=== PATIENT | female | born 1990 | race Caucasian/White ===

== ENCOUNTER 2017-04-02 00:35 | Inpatient (IN) | payer MEDICAID ==
[~2017-04-02] VITALS: Ht 144.8 cm; Wt 58.2 kg
--- NOTE | 2017-04-02 01:19 | TRIAGE ---
OB Triage Datetime Report Generated by CPN: 04/02/2017 01:19 Datetime: 04/02/2017 01:00 Time of Arrival: 04/02/2017 00:35 Chief Complaint: CXS SINCE 1999 Movement: Present Contractions: Regular Time Contractions Began: 04/01/2017 20:00 Rupture of Membranes: Denies Vaginal Bleeding: None Patient Complaints: None Additional Patient Complaints: DR NGO AT NURSE STATION Time Provider Notified: 04/02/2017 00:40 Provider Notified: HUBER Datetime: 04/02/2017 00:59 Assessment Type: Triage Maternal Assessment Level of Consciousness: Fully Conscious Headache: Denies Blurred Vision: No Respiratory Effort: Unlabored; Regular Rhythm; Equal Expansion Nausea/Vomiting: Denies RUQ Epigastric Pain: Denies Lower Extremities Edema: None Upper Extremities Edema: None Facial Edema: None Fall Risk Assessment History of Falling: (0) No Secondary Diagnosis: (0) No Ambulatory Aid: (0) Bedrest/Nurse Assist IV Therapy: (0) No Gait: (0) Normal/Bedrest/Immobile Mental Status: (0) Oriented to Own Ability Fall Score: 0 Fall Risk Score Definition: No Risk: No action required Datetime: 04/02/2017 00:52 Vaginal Exam Dilatation (cms): 10.0 Effacement (%): 100 Station: 1 Exam By: DR NGO Vaginal Bleeding: None Cervix, Consistency: Soft Cervix, Position: Anterior
[2017-04-02] MEDS ORDERED: OXYTOCIN 30 UNITS/LR 500 ML IV ONE ×2 (01:31→01:46)
[2017-04-02] MEDS ORDERED: LACTATED RINGER'S 1,000 ML IV SCH (01:33)
[2017-04-02 01:37] VITALS: Ht 144.8 cm; Wt 58.2 kg
[2017-04-02] MEDS ORDERED: CEFAZOLIN 2 GM/50 ML (PMX) 0 ML IVPB ONE (01:46)
[2017-04-02] MEDS ORDERED: BUTORPHANOL 2 MG INJ IV PRN (02:00)
[2017-04-02] MEDS ORDERED: LIDOCAINE 1% (MPF) 30 ML INJ INJ PRN (02:00)
[2017-04-02] MEDS ORDERED: CARBOPROST 250 MCG INJ IM PRN ×2 (02:00→06:30)
[2017-04-02] MEDS ORDERED: OXYTOCIN 30 UNITS/LR 500 ML IV SCH (02:00)
[2017-04-02] MEDS ORDERED: MISOPROSTOL 200 MCG TAB PR PRN ×2 (02:00→06:30)
[2017-04-02] MEDS ORDERED: METHYLERGONOVINE 0.2 MG INJ IM PRN ×2 (02:00→06:30)
[2017-04-02] MEDS ORDERED: AMPICILLIN 2 GM/NS (PMX) 100 ML IV ONE (02:00)
[2017-04-02] MEDS ORDERED: OXYTOCIN 30 UNITS/LR 500 ML IV PRN ×2 (02:00→06:30)
[2017-04-02] MEDS: OXYTOCIN 30 UNITS/LR 500 ML IV SCH ×2 (02:13→03:40)
[2017-04-02 03:20] LABS: BASOPHILS % 0.2 % (0.0-2.0); EOSINOPHILS % 0.1 % (0.0-7.0); HEMATOCRIT 35.7 % (37.0-47.0); HEMOGLOBIN 12.1 g/dl (12.0-16.0); LYMPHOCYTES % 6.8 % (15.0-51.0); MEAN CORPUSCULAR HEMOGLOBIN 28.2 pg (29.0-33.0); MEAN CORPUSCULAR HGB CONC 33.9 g/dl (32.0-37.0); MEAN CORPUSCULAR VOLUME 83.2 fl (82.0-101.0); MONOCYTE # 0.5 10^3/ul (0.3-0.9); MONOCYTES % 3.1 % (0.0-11.0); NEUTROPHIL # 13.4 10^3/ul (1.6-7.5); NEUTROPHILS % 89.4 % (39.0-77.0); PLATELET COUNT 212 10^3/UL (140-415); RED BLOOD COUNT 4.29 10^6/ul (4.20-5.40); RED CELL DISTRIBUTION WIDTH 13.2 % (11.5-14.5); WHITE BLOOD COUNT 14.9 10^3/ul (4.8-10.8)
[2017-04-02 03:40] LABS: INR 0.91; PROTIME 12.2 Sec (12.2-14.2)
[2017-04-02 03:41] LABS: PARTIAL THROMBOPLASTIN TIME 27.4 Sec (25.0-35.0)
--- NOTE | 2017-04-02 03:50 | LDN ---
Date/Time of Note Date/Time of Note DATE: 04/02/17 TIME: 03:46 Delivery Summary Weeks of Gestation 39w5d Placenta Delivered: Spontaneously Meconium: none Episiotomy: No Perineal laceration: 0 Anesthesia type: None Estimated blood loss: 500 Sponge & Needle done & correct: Yes All needle counts correct: Yes Any foreign bodies felt in the: No Problems: Delivery Information Sex Infant Sex: male Apgars 1 Minute: 9 5 Minute: 9 Suctioning Nose & mouth suctioned at chas: Yes Delee suction performed: No Umbilical Cord Umbilical cord with: 3 Vessels Cord presentations: no nuchal cord Cord Blood was obtained: Yes Mother & Baby Disposition Disposition Mom & Baby to Maternity; Good: Yes Mom transferred to: Other (post pa r radha) Baby to NICU: No ANJALI NGO MD Apr 02, 2017 03:50
--- NOTE | 2017-04-02 03:56 | HP ---
Date/Time of Note Date/Time of Note DATE: 04/02/17 TIME: 03:50 OB - History Hx of Present Free Text/Dictation 26 y.o at 39w5d brought by ER with delivery was imminen VE rim/ bulging bag admitted for expectant management Chief Complaint: labor Estimated Due Date: Apr 04, 2017 : 2 Para: 1 Spontaneous : 0 Therapeutic : 0 Care: Other Ultrasounds: Other Obstetrical Complications: None Medical Complications: None Past Family/Social History * Past Medical, Surgical, Family and Obstetric Histories reviewed from chart. Blood Type: Unknown Rubella: unknown RPR/VDRL: Unknown GBS Status: Unknown HBsAG: Unknown OB Admission Exam Physical Exam HEENT: WNL Heart: Rhythm Normal Lungs: Clear, Equal Abdomen: WNL Extremities: Normal Reflexes: Normal Cervical Dilatation: 9cm Effacement: 100% Station: -1 Membranes: Intact Heart Rate: 130's Accelerations: Accelerations Present Decelerations: No Decelerations Varibility: Moderate Contractions on Admission: < 5 Minutes Apart Intensity: Firm Last 72 hours Lab Results CBC & BMP 04/02/17 03:04 OB Assessment/Plan Reason for admission: active labor Other Assessment: [id number] Plan: Expectant Management ANJALI NGO MD Apr 02, 2017 03:55
[2017-04-02 05:57] LABS: BARBITURATES Negative (NEGATIVE); BENZODIAZEPINES Negative (NEGATIVE); CANNABINOIDS Negative (NEGATIVE); COCAINE Negative (NEGATIVE); OPIATES Negative (NEGATIVE)
[2017-04-02 06:00] VITALS: BP 121/82; PULSE 63; RESP 20
[2017-04-02] MEDS ORDERED: AMPICILLIN 1 GM/NS (PMX) 50 ML IV SCH (06:00)
[2017-04-02] MEDS ORDERED: ZOLPIDEM 5 MG TAB PO PRN (06:30)
[2017-04-02] MEDS ORDERED: OXYCODONE/ASPIRIN (4.88/325) TAB PO PRN ×2 (06:30)
[2017-04-02] MEDS: IBUPROFEN 600 MG TAB PO SCH ×4 (06:30→23:32)
[2017-04-02] MEDS ORDERED: WITCH HAZEL/GLYCERIN PAD PR PRN (06:30)
[2017-04-02] MEDS ORDERED: LANOLIN 7 GM TUBE TOP PRN (06:30)
[2017-04-02] MEDS ORDERED: BENZOCAINE 20% 56 ML SPRAY TOP PRN (06:30)
[2017-04-02 08:00] VITALS: BP 109/64; PULSE 68; RESP 16
[2017-04-02] MEDS: SENNA/DOCUSATE NA (8.6MG/50MG) TAB PO SCH ×2 (13:08→21:52)
[2017-04-02 20:00] VITALS: BP 96/61; PULSE 84; RESP 18
[2017-04-03 04:48] VITALS: BP 102/52; PULSE 68; RESP 17
[2017-04-03] MEDS: IBUPROFEN 600 MG TAB PO SCH ×3 (06:08→17:29)
[2017-04-03 08:25] VITALS: BP 101/58; PULSE 70; RESP 18
[2017-04-03 08:49] LABS: BASOPHIL # 0.1 10^3/ul (0.0-0.1); BASOPHILS % 0.9 % (0.0-2.0); EOSINOPHILS # 0.2 10^3/ul (0.0-0.5); EOSINOPHILS % 2.4 % (0.0-7.0); HEMATOCRIT 31.3 % (37.0-47.0); HEMOGLOBIN 10.3 g/dl (12.0-16.0); LYMPHOCYTES # 2.4 10^3/ul (0.8-2.9); MEAN CORPUSCULAR HEMOGLOBIN 28.2 pg (29.0-33.0); MEAN CORPUSCULAR HGB CONC 32.9 g/dl (32.0-37.0); MEAN CORPUSCULAR VOLUME 85.8 fl (82.0-101.0); MEAN PLATELET VOLUME 10.4 fl (7.4-10.4); MONOCYTE # 0.4 10^3/ul (0.3-0.9); MONOCYTES % 5.7 % (0.0-11.0); NEUTROPHIL # 4.5 10^3/ul (1.6-7.5); NEUTROPHILS % 58.9 % (39.0-77.0); PLATELET COUNT 208 10^3/UL (140-415); RED BLOOD COUNT 3.65 10^6/ul (4.20-5.40); RED CELL DISTRIBUTION WIDTH 13.8 % (11.5-14.5); WHITE BLOOD COUNT 7.6 10^3/ul (4.8-10.8)
[2017-04-03] MEDS: SENNA/DOCUSATE NA (8.6MG/50MG) TAB PO SCH ×2 (09:13→21:00)
[2017-04-03 16:00] VITALS: BP 113/56; PULSE 69; RESP 18
[2017-04-03] MEDS ORDERED: INFLUENZA VIRUS VACCINE 0.5 ML SYG IM* ONE (16:00)
[2017-04-03 20:00] VITALS: BP 134/54; PULSE 88; RESP 19
--- NOTE | 2017-04-03 20:58 | PN ---
Date/Time of Note Date/Time of Note DATE: 04/03/17 TIME: 20:56 OB Subjective Subjective Subjective April 03 day 1 Doing Well Afebrile Ambulatory Chest Clear Breasts are soft , Nipples are intact Abdomen is soft Fundus is firm Moderate amount of lochia No calf tenderness No ankle edema Laboratory Tests Test 04/03/17 08:15 White Blood Count 7.610^3/ul Red Blood Count 3.6510^6/ul Hemoglobin 10.3g/dl Hematocrit 31.3% Mean Corpuscular Volume 85.8fl Mean Corpuscular Hemoglobin 28.2pg Mean Corpuscular Hemoglobin Concent 32.9g/dl Red Cell Distribution Width 13.8% Platelet Count 69332^3/UL Mean Platelet Volume 10.4fl Neutrophils % 58.9% Lymphocytes % 32.0% Monocytes % 5.7% Eosinophils % 2.4% Basophils % 0.9% Nucleated Red Blood Cells % 0.0/100WBC Neutrophils # 4.510^3/ul Lymphocytes # 2.410^3/ul Monocytes # 0.410^3/ul Eosinophils # 0.210^3/ul Basophils # 0.110^3/ul Nucleated Red Blood Cells # 0.010^3/ul Current Medications Medications (Trade) Dose Ordered Sig/John Route PRN Reason Start Time Stop Time Status Last Admin Dose Admin Oxytocin/Lactated Ringer's 500 ml @ ud STK-MED ONCE IV 04/02/17 01:31 04/02/17 01:32 DC Lactated Ringer's 1,000 ml @ 125 mls/hr Q8H IV 04/02/17 01:33 04/02/17 06:08 DC 04/02/17 02:10 Ampicillin 100 ml @ 100 mls/hr ONCE ONCE IV 04/02/17 02:00 04/02/17 02:59 DC 04/02/17 02:11 Ampicillin (Ampicillin 1 Gm/ NS (Pmx)) 50 ml @ 100 mls/hr Q4H IV 04/02/17 06:00 04/02/17 06:08 DC Butorphanol Tartrate (Stadol) 2 mg Q2H PRN IV PAIN 04/02/17 02:00 04/02/17 06:08 DC Lidocaine 30 ml 30 ml ONCE PRN INJ EPISIOTOMY/TEARING 04/02/17 02:00 04/02/17 06:08 DC Oxytocin/Lactated Ringer's 500 ml @ 125 mls/hr ONCE -MAY REPEAT X1 IV 04/02/17 02:00 04/02/17 06:08 DC 04/02/17 03:40 Oxytocin/Lactated Ringer's 500 ml @ 125 mls/hr ONCE IV 04/02/17 02:00 04/02/17 06:08 DC 04/02/17 02:14 Oxytocin/Lactated Ringer's 500 ml @ 0 mls/hr ONCE PRN IV For Hemorrhage Management 04/02/17 02:00 04/02/17 06:08 DC Methylergonovine Maleate (Methergine) 0.2 mg ONCE PRN IM VAGINAL BLEEDING 04/02/17 02:00 04/02/17 06:09 DC 04/02/17 02:32 Carboprost Tromethamine (Hemabate) 250 mcg ONCE PRN IM VAGINAL BLEEDING 04/02/17 02:00 04/02/17 06:09 DC Misoprostol 1000 mcg 1,000 mcg ONCE PRN [place] VAGINAL BLEEDING 04/02/17 02:00 04/02/17 06:09 DC Oxytocin/Lactated Ringer's 500 ml @ ud STK-MED ONCE IV 04/02/17 01:46 04/02/17 01:47 DC Cefazolin Sodium/ Dextrose (Ancef 2 Gm/50 ml (Pmx)) 0 ml @ ud STK-MED ONCE IVPB 04/02/17 01:46 04/02/17 01:47 DC Ibuprofen (Motrin) 600 mg Q6 PO 04/02/17 06:30 04/03/17 17:29 Oxycodone/Aspirin (Percodan) 1 tab Q3H PRN PO PAIN LEVEL 1-5 04/02/17 06:30 Oxycodone/Aspirin (Percodan) 2 tab Q3H PRN PO PAIN LEVEL 6-10 04/02/17 06:30 Zolpidem Tartrate (Ambien) 5 mg QHS PRN PO INSOMNIA 04/02/17 06:30 Senna/Docusate Sodium (Senokot-S) 1 tab BID PO 04/02/17 09:00 04/03/17 09:13 Witch [place]/ Glycerin (Tucks Pads) 1 pad BEDSIDE MEDICATION PRN WA HEMORRHOID/EPISIOTMY PAIN 04/02/17 06:30 04/02/17 13:09 Benzocaine (Dermoplast [place]) 1 spray BEDSIDE MEDICATION PRN TOP HEMORRHOID/EPISIOTMY PAIN 04/02/17 06:30 04/02/17 13:09 Lanolin (Fxs-Q-Debioi) 1 applic BEDSIDE MEDICATION PRN TOP BEDSIDE FOR RIA TO NIPPLES 04/02/17 06:30 04/02/17 13:09 Diphtheria/ Tetanus/Acell Pertussis 0.5 ml 0.5 ml ONCE ONCE IM* 04/04/17 09:00 04/04/17 09:01 Oxytocin/Lactated Ringer's 500 ml @ 0 mls/hr ONCE PRN IV For Hemorrhage Management 04/02/17 06:30 Methylergonovine Maleate (Methergine) 0.2 mg ONCE PRN IM VAGINAL BLEEDING 04/02/17 06:30 Carboprost Tromethamine (Hemabate) 250 mcg ONCE PRN IM VAGINAL BLEEDING 04/02/17 06:30 Misoprostol (Cytotec) 1,000 mcg ONCE PRN [place] VAGINAL BLEEDING 04/02/17 06:30 Influenza Virus Vaccine (Fluzone) 0.5 ml ONCE ONCE IM* 04/05/17 09:00 04/05/17 09:00 DC Influenza Virus Vaccine (Fluzone) 0.5 ml ONCE ONCE IM* 04/03/17 16:00 04/03/17 16:01 DC 04/03/17 17:30 New born is doing well, Breast feeding NAS LOPEZ MD Apr 03, 2017 20:58
[2017-04-04 04:00] VITALS: BP 96/54; PULSE 72; RESP 18
[2017-04-04] MEDS: IBUPROFEN 600 MG TAB PO SCH ×3 (05:42→11:14)
[2017-04-04 08:00] VITALS: BP 106/58; PULSE 77; RESP 18
[2017-04-04] MEDS: SENNA/DOCUSATE NA (8.6MG/50MG) TAB PO SCH (09:00)
[2017-04-04] MEDS ORDERED: DIPHTH/TET/ACEL PERTUSS (ADULT) 0.5 ML VIAL IM* ONE (09:00)
--- NOTE | 2017-04-04 09:11 | DS ---
Date/Time of Note Date/Time of Note DATE: 04/04/17 TIME: 09:10 Discharge Summary Admission/Discharge Info Admit Date/Time Apr 02, 2017 at 00:37 Discharge Date/Time Discharge Diagnosis term Patient Condition: Stable Hospital Course unremarkable Primary Care Provider Care Physician No Primary NENA RAY MD Apr 04, 2017 09:11
[2017-04-05] MEDS ORDERED: INFLUENZA VIRUS VACCINE 0.5 ML SYG IM* ONE (09:00)
== END 2017-04-04 16:59 | disposition home or self-care (01) | DRG 775 ==
LOC: L-D 00:35 → OBT 00:35 → L-D 00:37 → PP1 05:42
PROVIDERS: ADMIT Obstetrics & Gynecology; ATTEND Obstetrics & Gynecology
PROC: 10E0XZZ Delivery of Products of Conception, External Approach (ICD-10-PCS; principal; 2017-04-02)
DX: O80 Encounter for full-term uncomplicated delivery (principal); Z37.0 Single live birth; Z3A.39 39 weeks gestation of pregnancy
CPT/HCPCS: 80307; 85025; 85610; 85730; 86592; 86900; 86901; 87340; 90686; 90715; G0463; J0290; J0690; J2210; J2590; J7120